=== PATIENT | female | born 1935 | race Asian ===

== ENCOUNTER 2023-02-15 12:00 | Emergency (ER) | payer OTHER, BC ==
[2023-02-15 12:18] VITALS: RESP 16; BMI 21.4
[2023-02-15] MEDS ORDERED: ACETAMINOPHEN 500 MG TABLET (FP) PO ONE (12:24)
[2023-02-15] MEDS ORDERED: ACETAMINOPHEN 500 MG TABLET (FP) ONE (12:29)
[2023-02-15 13:40] LABS: EPITHELIAL CELLS 0-5 /hpf
[2023-02-15 14:28] LABS: HEMATOCRIT 40.2 % (32.4-45.2); HEMOGLOBIN 13.4 G/dL (10.7-15.3); MCH 33.7 pg (25.7-33.7); MCHC 33.4 g/dl (32.0-36.0); MEAN CELL VOLUME 101.1 fl (80-96); MEAN PLT VOLUME 9.3 fl (7.5-11.1); PLATELET COUNT 145.6 10^3/uL (134-434); RBC 3.98 10^6/uL (3.60-5.2); RDW 13.1 % (11.6-15.6); WHITE BLOOD COUNT 4.7 10^3/uL (4.0-10.8)
[2023-02-15 14:34] LABS: INR 0.91 (0.83-1.09); PROTHROMBIN TIME (PATIENT) 10.6 SEC (9.7-13.0)
[2023-02-15 14:36] LABS: ACTIVATED PTT 31.2 SECONDS (25.2-36.5)
[2023-02-15 14:45] LABS: BILIRUBIN,TOTAL 0.4 mg/dl (0.2-1); BLOOD UREA NITROGEN 20.5 mg/dl (7-18); CALCIUM 9.5 mg/dl (8.5-10.1); CREATININE 0.6 mg/dl (0.6-1.3); MAGNESIUM 2.2 mg/dL (1.8-2.4); POTASSIUM 3.8 mmol/L (3.5-5.1); SGOT/AST 16.484 U/L (15-37); SGPT/ALT 13.244 U/L (7-52); TOT PROT 6.9 g/dl (6.4-8.2)
[2023-02-15 16:11] LABS: PLATELET ESTIMATE ADEQUATE
[2023-02-15 16:56] VITALS: BP 196/89; PULSE 78; TEMP 98.5
== END 2023-02-15 17:04 | disposition home or self-care (01) ==
LOC: FER 12:00
DX: M79.661 Pain in right lower leg (principal); R30.0 Dysuria; M25.551 Pain in right hip; W19.XXXA Unspecified fall, initial encounter
CPT/HCPCS: 36415; 70450-TC; 71045-TC-FY; 72125-TC; 73502-TC-RT-FY; 73590-TC-RT-FY; 80053; 81003; 81015; 83735; 84443; 84484; 85027; 85610; 85730; 87086; 93005; 99285-25

== ENCOUNTER 2023-11-25 07:18 | Emergency (ER) | payer OTHER, BC ==
[2023-11-25 07:42] VITALS: BP 179/64; PULSE 71; RESP 16; TEMP 98.6; BMI 25.4
[2023-11-25] MEDS ORDERED: ACETAMINOPHEN 325 MG TABLET (FP) ONE (08:06)
[2023-11-25] MEDS: ACETAMINOPHEN 325 MG TABLET (FP) PO ONE (08:11)
== END 2023-11-25 10:43 | disposition home or self-care (01) ==
LOC: FER 07:18
DX: R51.9 Headache, unspecified (principal); M79.645 Pain in left finger(s); W19.XXXA Unspecified fall, initial encounter
CPT/HCPCS: 70450-TC; 71045-TC-FY; 72125-TC; 72170-TC-FY; 73110-TC-LT-FY; 73130-TC-LT-FY; 99284-25

== ENCOUNTER 2024-01-27 21:11 | Emergency (ER) | payer OTHER, BC ==
[2024-01-27 21:34] VITALS: BP 215/83; PULSE 82; RESP 16; TEMP 99.3; BMI 38.3
== END 2024-01-27 23:04 | disposition home or self-care (01) ==
LOC: FER 21:11
DX: M25.551 Pain in right hip (principal); M25.552 Pain in left hip; W19.XXXA Unspecified fall, initial encounter
CPT/HCPCS: 70450-TC; 72170-TC-FY; 73502-TC-LT-FY; 73502-TC-RT-FY; 99284-25